=== PATIENT | male | born 1955 | race Caucasian/White ===

== ENCOUNTER 2020-06-24 17:33 | Inpatient (IN) | payer OTHER ==
[~2020-06-24] VITALS: Ht 182.9 cm; Wt 89.2 kg
[~2020-06-24 17:33] MED LIST: PERCOT PO
[2020-06-24] MEDS ORDERED: cefTRIAXone 1GM/50ML D5W 50 ML IV ONE (17:45)
[2020-06-24] MEDS ORDERED: FUROSEMIDE 20 MG/2 ML VIAL IV ONE (17:45)
[2020-06-24] MEDS ORDERED: NITROGLYCERIN 0.4 MG SL TAB SL PRN ×2 (18:45→22:45)
[2020-06-24] MEDS ORDERED: MORPHINE SULF INJ 2 MG/ML SYRINGE 1ML IV PRN ×3 (18:45→22:45)
[2020-06-24 18:59] LABS: Basophils # (auto) 0 10 ^3/uL (0-0.2); Eosinophils # (auto) 0.1 10 ^3/uL (0-0.8); Eosinophils % (auto) 1.7 % (0.0-7.0); Hemoglobin 11.5 g/dL (13.5-17.5); Lymphocytes # (auto) 0.8 10 ^3/uL (0.4-5.4); Monocytes # (auto) 0.7 10 ^3/uL (0-1.3); Neutrophils # (auto) 5.7 10 ^3/uL (1.6-8.6)
[2020-06-24 19:01] LABS: Basophils % (auto) 0.2 % (0.0-2.0); Hematocrit 33.5 % (41.0-53.0); Lymphocytes % (auto) 10.9 % (10.0-50.0); Mean Corpuscular Hemoglobin 36.2 pg (28.0-32.0); Mean Corpuscular Hgb Conc. 34.3 g/dL (32.0-36.0); Mean Corpuscular Volume 105.6 fL (80.0-100.0); Monocytes % (auto) 9.3 % (0.0-12.0); Neutrophils % (auto) 77.9 % (37.0-80.0); Nucleated Red Blood Cells % 0.2 %; Platelet Count (auto) 86 10^3/uL (140-450); Red Blood Cells 3.17 10^6/uL (4.5-5.90); Red Cell Distribution Width 16.2 % (11.8-14.3); White Blood Cell 7.4 10^3/uL (4.4-10.8)
[2020-06-24 19:04] LABS: Albumin 2.5 g/dL (3.4-5.0); Anion Gap 9 (5-15); Blood Urea Nitrogen 19 mg/dL (7-18); Calcium 8.3 mg/dL (8.5-10.1); Carbon Dioxide 22 mmol/L (21-32); Chloride 104 mmol/L (98-107); Glucose 99 mg/dL (74-106); Potassium 3.3 mmol/L (3.5-5.1); Sodium 135 mmol/L (136-145)
[2020-06-24 19:06] LABS: Alanine Aminotransferase 44 U/L (16-61); Aspartate Aminotransferase 88 U/L (15-37); GFR African American 102 mL/min; GFR Non-African American 84 mL/min
[2020-06-24 19:09] LABS: Lactic Acid w/Reflex 2.1 mmol/L (0.4-2.0)
[2020-06-24 19:11] LABS: Alkaline Phosphatase 173 U/L (45-117); Bilirubin, Total 7.7 mg/dL (0.2-1.0); Total Protein 6.9 g/dL (6.4-8.2)
[2020-06-24 19:28] LABS: INR 1.41 (0.9-1.15); Partial Thromboplastin Time 33.1 sec (23.0-31.2)
[2020-06-24 20:54] VITALS: BP 119/72
[2020-06-24] MEDS ORDERED: MULT-1018 PO (21:52)
[2020-06-24 22:00] VITALS: BP 119/72
[2020-06-24] MEDS ORDERED: POTASSIUM CHL 20MEQ/100ML 100 ML IV ONE (22:45)
[2020-06-24] MEDS ORDERED: SODIUM CHLORIDE 0.9% 1,000 ML IV SCH (22:45)
[2020-06-24] MEDS ORDERED: THIAMINE HCL 100 MG TAB PO ONE (22:45)
[2020-06-24] MEDS ORDERED: DOCUSATE SOD 100 MG CAP PO PRN (22:45)
[2020-06-24] MEDS ORDERED: ACETAMINOPHEN 500 MG TAB PO PRN (22:45)
[2020-06-24] MEDS ORDERED: FOLIC ACID 1 MG TAB PO ONE (22:45)
[2020-06-24] MEDS ORDERED: LORazepam 0.5 MG TAB PO PRN (22:45)
[2020-06-24] MEDS ORDERED: ONDANSETRON HCL 4 MG/2 ML VIAL IV PRN (22:45)
[2020-06-24] MEDS ORDERED: MULTIPLE VITAMINS W/ MINERALS TAB PO ONE (22:45)
[2020-06-24] MEDS ORDERED: ALUM & MAG HYDROX-SIMETH LIQ(MAALOX) 30 ML PO PRN (22:45)
[2020-06-24] MEDS ORDERED: LORazepam 2MG/ML-1ML VIAL IV PRN (23:00)
[2020-06-24] MEDS ORDERED: VITAMINS A & D (TOPICAL) OINT 5GM TOP ONE (23:00)
[2020-06-24] MEDS ORDERED: VITAMINS A & D (TOPICAL) OINT 5GM TOP PRN (23:00)
[2020-06-24] MEDS ORDERED: ARTISOL13 EACHEYE (23:35)
[2020-06-24 23:38] LABS: Magnesium 1.6 mg/dL (1.6-2.6)
[2020-06-24 23:47] LABS: CRP High Sensitivity 2.16 mg/dL (< 0.3)
[2020-06-25] VITALS (7 sets, daily range): BP systolic 96–119; BP diastolic 56–72
[2020-06-25] MEDS ORDERED: IPRATROPIUM BROM 0.5 MG/2.5ML INH SOL NEB PRN (03:45)
[2020-06-25] MEDS ORDERED: ALBUTEROL SULF 2.5 MG/0.5ML(0.5%) NEB SOLN NEB PRN (03:45)
[2020-06-25] MEDS ORDERED: ALBUTEROL SULF HFA 90MCG INH 200DOSE IN SCH (06:00)
[2020-06-25] MEDS: FUROSEMIDE 20 MG/2 ML VIAL IV SCH ×2 (07:04→17:47)
[2020-06-25 07:48] LABS: Basophils # (auto) 0 10 ^3/uL (0-0.2); Eosinophils # (auto) 0.1 10 ^3/uL (0-0.8); Hemoglobin 10.6 g/dL (13.5-17.5); Monocytes # (auto) 0.3 10 ^3/uL (0-1.3); White Blood Cell 3.3 10^3/uL (4.4-10.8)
[2020-06-25 07:51] LABS: Basophils % (auto) 0.8 % (0.0-2.0); Eosinophils % (auto) 3.4 % (0.0-7.0); Hematocrit 31.3 % (41.0-53.0); Lymphocytes # (auto) 0.4 10 ^3/uL (0.4-5.4); Lymphocytes % (auto) 12.9 % (10.0-50.0); Mean Corpuscular Hemoglobin 36.1 pg (28.0-32.0); Mean Corpuscular Hgb Conc. 33.9 g/dL (32.0-36.0); Mean Corpuscular Volume 106.4 fL (80.0-100.0); Monocytes % (auto) 8.6 % (0.0-12.0); Neutrophils # (auto) 2.4 10 ^3/uL (1.6-8.6); Neutrophils % (auto) 74.3 % (37.0-80.0); Nucleated Red Blood Cells % 0.2 %; Platelet Count (auto) 50 10^3/uL (140-450); Red Blood Cells 2.94 10^6/uL (4.5-5.90); Red Cell Distribution Width 16.4 % (11.8-14.3)
[2020-06-25 08:02] LABS: INR 1.41 (0.9-1.15); Partial Thromboplastin Time 37.1 sec (23.0-31.2)
[2020-06-25 08:13] LABS: Chloride 106 mmol/L (98-107); Potassium 3.1 mmol/L (3.5-5.1); Sodium 137 mmol/L (136-145)
[2020-06-25 08:20] LABS: Alanine Aminotransferase 37 U/L (16-61); Albumin 2.1 g/dL (3.4-5.0); Alkaline Phosphatase 154 U/L (45-117); Anion Gap 8 (5-15); Aspartate Aminotransferase 73 U/L (15-37); BUN/Creatinine Ratio 20.8; Bilirubin, Total 4.8 mg/dL (0.2-1.0); Blood Urea Nitrogen 16 mg/dL (7-18); Calcium 8.1 mg/dL (8.5-10.1); Carbon Dioxide 23 mmol/L (21-32); Cholesterol 112 mg/dL (< 200); GFR African American 130 mL/min; GFR Non-African American 107 mL/min; Glucose 179 mg/dL (74-106); HDL Cholesterol 57 mg/dL (40-59); LDL Cholesterol 53 mg/dL (< 100); Magnesium 1.8 mg/dL (1.6-2.6); Phosphorus 3.1 mg/dL (2.5-4.90); Total Protein 5.7 g/dL (6.4-8.2); Triglycerides 83 mg/dL (< 150)
[2020-06-25] MEDS: METOPROLOL TARTRATE 25 MG TAB PO SCH ×2 (10:00→22:38)
[2020-06-25] MEDS ORDERED: DexAMETHasone SOD PHOS 10MG/1ML VIAL INJ IV SCH (10:00)
[2020-06-25] MEDS ORDERED: ZINC SULFATE 220mg CAP or TAB PO SCH (10:00)
[2020-06-25] MEDS ORDERED: CHOLECALCIFEROL (VITD3) 2,000 UNIT CAP PO SCH (10:00)
[2020-06-25] MEDS ORDERED: ASCORBIC ACID 1,000 MG TAB PO SCH (10:00)
[2020-06-25] MEDS ORDERED: BUDESONIDE (INHALATION) 180 MCG IH IN SCH (10:00)
[2020-06-25] MEDS ORDERED: DOXYCYCLINE 100MG/250ML 250 ML IV SCH (10:00)
[2020-06-25] MEDS: FAMOTIDINE (10MG/ML) 2ML VL IV SCH ×2 (10:30→22:39)
[2020-06-25] MEDS: ASPirin 81 mg TAB PO SCH (10:30)
[2020-06-25] MEDS: FOLIC ACID 1 MG TAB PO SCH (10:30)
[2020-06-25] MEDS: THIAMINE HCL 100 MG TAB PO SCH (10:30)
[2020-06-25] MEDS: POTASSIUM CHL 20 Meq TABLET PO SCH (10:31)
[2020-06-25] MEDS: ENOXAPARIN SOD 40 MG/0.4 ML SYRINGE SC SCH (10:31)
[2020-06-25] MEDS: MULTIPLE VITAMINS W/ MINERALS TAB PO SCH (10:31)
[2020-06-25] MEDS: MAGNESIUM SULFATE 1GM/100ML 100 ML IV ONE ×2 (14:15→14:45)
[2020-06-25 15:04] LABS: Folate (Folic Acid) 15.23 ng/mL (5.38-24)
[2020-06-25 15:17] LABS: % Iron Saturation 37.2 % (20-55)
[2020-06-25 17:35] LABS: Urine Bacteria FEW /hpf (None Seen); Urine Blood Negative /uL (Negative); Urine Mucus FEW (None Seen); Urine WBC 2 /hpf (0 - 3)
[2020-06-25 17:44] LABS: Alcohol, Urine < 3.0 mg/dL (0-10); Amphetamine Screen, Urine POSITIVE (NEGATIVE); Barbiturate Scree,Urine NEGATIVE (NEGATIVE); Benzodiazephine Screen, Urine NEGATIVE (NEGATIVE); Cannabinoid Screen, Urine NEGATIVE (NEGATIVE); Cocaine Screen, Urine NEGATIVE (NEGATIVE); Phencyclidine Screen, Urine NEGATIVE (NEGATIVE)
[2020-06-25 17:51] LABS: Opiate Scree,Urine NEGATIVE (NEGATIVE)
[2020-06-25] MEDS ORDERED: ATORVASTATIN 20 MG TAB PO SCH (22:00)
[2020-06-26 05:00] VITALS: BP 103/61
[2020-06-26] MEDS: FUROSEMIDE 20 MG/2 ML VIAL IV SCH ×2 (05:36→17:51)
[2020-06-26 07:15] LABS: INR 1.41 (0.9-1.15)
[2020-06-26 07:20] LABS: Basophils # (auto) 0 10 ^3/uL (0-0.2); Basophils % (auto) 0.5 % (0.0-2.0); Eosinophils # (auto) 0.1 10 ^3/uL (0-0.8); Eosinophils % (auto) 4.4 % (0.0-7.0); Hematocrit 34.8 % (41.0-53.0); Hemoglobin 11.6 g/dL (13.5-17.5); Lymphocytes # (auto) 0.6 10 ^3/uL (0.4-5.4); Lymphocytes % (auto) 24.3 % (10.0-50.0); Mean Corpuscular Hemoglobin 35.9 pg (28.0-32.0); Mean Corpuscular Hgb Conc. 33.4 g/dL (32.0-36.0); Mean Corpuscular Volume 107.4 fL (80.0-100.0); Monocytes # (auto) 0.3 10 ^3/uL (0-1.3); Monocytes % (auto) 10.7 % (0.0-12.0); Neutrophils # (auto) 1.6 10 ^3/uL (1.6-8.6); Neutrophils % (auto) 60.1 % (37.0-80.0); Nucleated Red Blood Cells % 0.1 %; Platelet Count (auto) 57 10^3/uL (140-450); Red Blood Cells 3.24 10^6/uL (4.5-5.90); Red Cell Distribution Width 16.9 % (11.8-14.3); White Blood Cell 2.6 10^3/uL (4.4-10.8)
[2020-06-26 07:24] LABS: Calcium 8.1 mg/dL (8.5-10.1); Potassium 3.5 mmol/L (3.5-5.1)
[2020-06-26 07:28] LABS: Albumin 2.2 g/dL (3.4-5.0); BUN/Creatinine Ratio 17.7; Magnesium 1.6 mg/dL (1.6-2.6)
[2020-06-26 07:30] LABS: Bilirubin, Total 3.8 mg/dL (0.2-1.0); Total Protein 6.3 g/dL (6.4-8.2)
[2020-06-26] MEDS ORDERED: ADENOSINE 76 MG in GIVE UN-DILUTED 0 ML IV STA (08:33)
[2020-06-26 09:00] VITALS: BP 106/71
[2020-06-26] MEDS: FOLIC ACID 1 MG TAB PO SCH (10:27)
[2020-06-26] MEDS: THIAMINE HCL 100 MG TAB PO SCH (10:27)
[2020-06-26] MEDS: ASPirin 81 mg TAB PO SCH (10:27)
[2020-06-26] MEDS: POTASSIUM CHL 20 Meq TABLET PO SCH (10:27)
[2020-06-26] MEDS: FAMOTIDINE (10MG/ML) 2ML VL IV SCH ×2 (10:27→21:54)
[2020-06-26] MEDS: MULTIPLE VITAMINS W/ MINERALS TAB PO SCH (10:28)
[2020-06-26] MEDS: ENOXAPARIN SOD 40 MG/0.4 ML SYRINGE SC SCH (10:28)
[2020-06-26 13:00] VITALS: BP 98/51
[2020-06-26] MEDS: METOPROLOL TARTRATE 25 MG TAB PO SCH ×2 (13:01→21:55)
[2020-06-26] MEDS ORDERED: POTASSIUM CHL 20 Meq TABLET PO ONE (16:15)
[2020-06-26] MEDS ORDERED: MAGNESIUM SULFATE 1GM/100ML 100 ML IV ONE (16:15)
[2020-06-26 16:42] VITALS: BP 112/71
[2020-06-26] MEDS: HYDROcodone-ACET 5/325MG TAB PO PRN (21:54)
[2020-06-26 22:00] VITALS: BP 108/57
[2020-06-27 05:28] VITALS: BP 126/65
[2020-06-27] MEDS: FUROSEMIDE 20 MG/2 ML VIAL IV SCH (06:04)
[2020-06-27] MEDS: HYDROcodone-ACET 5/325MG TAB PO PRN (06:16)
[2020-06-27 06:24] LABS: Basophils # (auto) 0 10 ^3/uL (0-0.2); Basophils % (auto) 0.7 % (0.0-2.0); Eosinophils # (auto) 0.1 10 ^3/uL (0-0.8); Eosinophils % (auto) 4.8 % (0.0-7.0); Hematocrit 34.6 % (41.0-53.0); Hemoglobin 11.9 g/dL (13.5-17.5); Lymphocytes # (auto) 0.7 10 ^3/uL (0.4-5.4); Lymphocytes % (auto) 23.8 % (10.0-50.0); Mean Corpuscular Hemoglobin 36.9 pg (28.0-32.0); Mean Corpuscular Hgb Conc. 34.4 g/dL (32.0-36.0); Mean Corpuscular Volume 107.4 fL (80.0-100.0); Monocytes # (auto) 0.3 10 ^3/uL (0-1.3); Monocytes % (auto) 11.5 % (0.0-12.0); Neutrophils # (auto) 1.8 10 ^3/uL (1.6-8.6); Neutrophils % (auto) 59.2 % (37.0-80.0); Nucleated Red Blood Cells % 0.2 %; Platelet Count (auto) 60 10^3/uL (140-450); Red Blood Cells 3.22 10^6/uL (4.5-5.90); Red Cell Distribution Width 16.8 % (11.8-14.3)
[2020-06-27 06:46] LABS: Albumin 2.2 g/dL (3.4-5.0); Calcium 8.5 mg/dL (8.5-10.1); Magnesium 1.9 mg/dL (1.6-2.6)
[2020-06-27 06:51] LABS: BUN/Creatinine Ratio 17.5; Bilirubin, Total 2.9 mg/dL (0.2-1.0); Phosphorus 3.5 mg/dL (2.5-4.90); Total Protein 6.3 g/dL (6.4-8.2)
[2020-06-27 09:00] VITALS: BP 115/61
[2020-06-27 09:10] LABS: Hepatitis B Surface Antibody Negative
[2020-06-27 09:36] LABS: Hepatitis A Total Antibody Negative
[2020-06-27] MEDS: ENOXAPARIN SOD 40 MG/0.4 ML SYRINGE SC SCH (10:00)
[2020-06-27 10:13] LABS: Hepatitis B Core Total AB Negative; Hepatitis B Surface Antigen Negative (Negative)
[2020-06-27] MEDS: POTASSIUM CHL 20 Meq TABLET PO SCH (10:13)
[2020-06-27] MEDS: ASPirin 81 mg TAB PO SCH (10:13)
[2020-06-27] MEDS: FOLIC ACID 1 MG TAB PO SCH (10:14)
[2020-06-27] MEDS: METOPROLOL TARTRATE 25 MG TAB PO SCH (10:14)
[2020-06-27] MEDS: MULTIPLE VITAMINS W/ MINERALS TAB PO SCH (10:14)
[2020-06-27] MEDS: FAMOTIDINE (10MG/ML) 2ML VL IV SCH (10:15)
[2020-06-27 10:20] LABS: Hepatitis C Antibody Positive (Negative)
[2020-06-27] MEDS: THIAMINE HCL 100 MG TAB PO SCH (10:20)
[2020-06-27 13:00] VITALS: BP 118/83
[2020-06-27] MEDS ORDERED: SACC250C PO (15:50)
[2020-06-27] MEDS ORDERED: MET25T PO (15:50)
[2020-06-27] MEDS ORDERED: DOXY-286 PO (15:50)
[2020-06-27] MEDS ORDERED: MULT-351 PO (15:50)
[2020-06-27] MEDS ORDERED: THIA100T5 PO (15:50)
[2020-06-27] MEDS ORDERED: FAMO20TA10 PO (15:50)
[2020-06-27] MEDS ORDERED: ASPI-378 PO (15:50)
[2020-06-27 16:57] VITALS: BP 107/63
== END 2020-06-27 17:01 | disposition left against medical advice (07) | DRG 917 ==
LOC: ER 17:33 → EDBD 17:33 → TELE-EAST 17:34 → TELE-CENTR 06-25 19:35
PROVIDERS: ADMIT Hospitalist; ATTEND Internal Medicine
DX: T43.621A Poisoning by amphetamines, accidental (unintentional), initial encounter (principal); I50.33 Acute on chronic diastolic (congestive) heart failure; N17.0 Acute kidney failure with tubular necrosis; J44.1 Chronic obstructive pulmonary disease with (acute) exacerbation; F10.239 Alcohol dependence with withdrawal, unspecified; E87.1 Hypo-osmolality and hyponatremia; D68.4 Acquired coagulation factor deficiency; D61.818 Other pancytopenia; K76.6 Portal hypertension; D68.69 Other thrombophilia; I48.91 Unspecified atrial fibrillation; E87.6 Hypokalemia; D53.9 Nutritional anemia, unspecified; K70.10 Alcoholic hepatitis without ascites; F12.90 Cannabis use, unspecified, uncomplicated; F15.10 Other stimulant abuse, uncomplicated; F17.210 Nicotine dependence, cigarettes, uncomplicated; I25.10 Atherosclerotic heart disease of native coronary artery without angina pectoris; R16.1 Splenomegaly, not elsewhere classified; Z53.29 Procedure and treatment not carried out because of patient's decision for other reasons; K29.20 Alcoholic gastritis without bleeding; K70.30 Alcoholic cirrhosis of liver without ascites; Z20.828 Contact with and (suspected) exposure to other viral communicable diseases; Z91.81 History of falling; Z71.6 Tobacco abuse counseling; Z71.41 Alcohol abuse counseling and surveillance of alcoholic
CPT/HCPCS: 36415; 70450; 71045; 71250; 78452; 80053; 80061; 80307; 81001; 82607; 82728; 82746; 83036; 83540; 83550; 83605; 83615; 83735; 83880; 84100; 84443; 84484; 85025; 85379; 85610; 85730; 86141; 86704; 86706; 86708; 86803; 87040; 87086; 87340; 87426; 93005; 93017; 93306; 93926; 93970; 93971; 96365; 97163; G0378; J0153; J0696; J3480; J3490

== ENCOUNTER 2021-03-07 12:23 | Inpatient (IN) | payer OTHER, MEDICARE ==
[~2021-03-07] VITALS: Ht 180.3 cm; Wt 77.1 kg
[~2021-03-07 12:23] MED LIST changes: +ARTISOL13 EACHEYE; +ASPI-378 PO; +DOXY-286 PO; +FAMO20TA10 PO; +MET25T PO; +MULT-1018 PO; +MULT-351 PO; -PERCOT PO; +SACC250C PO; +THIA100T5 PO
[2021-03-07 14:11] LABS: Basophils # (auto) 0 10 ^3/uL (0-0.2); Monocytes # (auto) 0.5 10 ^3/uL (0-1.3); Red Blood Cells 3.43 10^6/uL (4.5-5.90); White Blood Cell 3.7 10^3/uL (4.4-10.8)
[2021-03-07 14:13] LABS: Basophils % (auto) 0.4 % (0.0-2.0); Eosinophils # (auto) 0.1 10 ^3/uL (0-0.8); Eosinophils % (auto) 3.9 % (0.0-7.0); Hematocrit 35.5 % (41.0-53.0); Hemoglobin 12.6 g/dL (13.5-17.5); Lymphocytes # (auto) 0.8 10 ^3/uL (0.4-5.4); Lymphocytes % (auto) 23.1 % (10.0-50.0); Mean Corpuscular Hemoglobin 36.5 pg (28.0-32.0); Mean Corpuscular Hgb Conc. 35.4 g/dL (32.0-36.0); Mean Corpuscular Volume 103.3 fL (80.0-100.0); Monocytes % (auto) 14.6 % (0.0-12.0); Neutrophils # (auto) 2.1 10 ^3/uL (1.6-8.6); Nucleated Red Blood Cells % 0.2 %; Red Cell Distribution Width 14.9 % (11.8-14.3)
[2021-03-07 14:33] LABS: Chloride 114 mmol/L (98-107); Potassium 4.2 mmol/L (3.5-5.1); Sodium 141 mmol/L (136-145)
[2021-03-07 14:43] LABS: Alanine Aminotransferase 64 U/L (16-61); Albumin 2.2 g/dL (3.4-5.0); Alkaline Phosphatase 184 U/L (45-117); Anion Gap 3 (5-15); Aspartate Aminotransferase 91 U/L (15-37); BUN/Creatinine Ratio 17.7; Bilirubin, Total 3.1 mg/dL (0.2-1.0); Blood Urea Nitrogen 11 mg/dL (7-18); Calcium 8.7 mg/dL (8.5-10.1); Carbon Dioxide 24 mmol/L (21-32); GFR African American 166 mL/min; GFR Non-African American 138 mL/min; Glucose 100 mg/dL (74-106); Magnesium 1.9 mg/dL (1.6-2.6); Total Protein 5.8 g/dL (6.4-8.2)
[2021-03-07] MEDS ORDERED: MORPHINE SULF INJ 2 MG/ML SYRINGE 1ML IV PRN ×3 (15:00→23:45)
[2021-03-07] MEDS ORDERED: NITROGLYCERIN 0.4 MG SL TAB SL PRN ×2 (15:00→23:45)
[2021-03-07] MEDS ORDERED: LACTATED RINGER'S 1,000 ML IV ONE (15:00)
[2021-03-07] MEDS ORDERED: METOPROLOL TARTRATE 1MG/1ML-5ML VIAL IV PRN (19:00)
[2021-03-07 20:00] VITALS: BP 137/92
[2021-03-07 22:00] VITALS: BP 137/92
[2021-03-07 22:43] LABS: Urine WBC None Seen /hpf (0 - 3)
[2021-03-07 22:57] LABS: Urine Bacteria NONE SEEN /hpf (None Seen); Urine Blood Negative /uL (Negative)
[2021-03-07] MEDS ORDERED: ONDANSETRON HCL 4 MG/2 ML VIAL IV PRN (23:45)
[2021-03-07] MEDS ORDERED: HYDROcodone-ACET 5/325MG TAB PO PRN (23:45)
[2021-03-07] MEDS ORDERED: DOCUSATE SOD 100 MG CAP PO PRN (23:45)
[2021-03-07] MEDS ORDERED: LORazepam 2MG/ML-1ML VIAL IV PRN (23:45)
[2021-03-07] MEDS ORDERED: cefTRIAXone 1GM/50ML D5W 50 ML IV ONE (23:45)
[2021-03-07] MEDS ORDERED: ALUM & MAG HYDROX-SIMETH LIQ(MAALOX) 30 ML PO PRN (23:45)
[2021-03-08] MEDS: LACTULOSE 20Gm/30ML SOLN PO SCH ×13 (00:13→17:33)
[2021-03-08] MEDS ORDERED: HYDROIN8 EX (01:37)
[2021-03-08] MEDS ORDERED: LISI40TA11 PO (01:37)
[2021-03-08 05:00] VITALS: BP 97/50
[2021-03-08] MEDS: SODIUM CHLOR 0.9% PF (SALINE LOCK) 10ML VIAL/SYR IV SCH ×3 (06:09→22:16)
[2021-03-08 07:34] LABS: Cholesterol 151 mg/dL (< 200); HDL Cholesterol 66 mg/dL (40-59); LDL Cholesterol 81 mg/dL (< 100); Triglycerides 58 mg/dL (< 150)
[2021-03-08 09:00] VITALS: BP 98/63
[2021-03-08] MEDS: cefTRIAXone 1GM/50ML D5W 50 ML IV SCH (09:36)
[2021-03-08] MEDS: FAMOTIDINE 20 MG TAB PO SCH ×2 (09:37→22:16)
[2021-03-08] MEDS: THIAMINE HCL 100 MG TAB PO SCH (09:37)
[2021-03-08] MEDS: FLORASTOR (S. BOULARDII) 250 MG CAP PO SCH (09:38)
[2021-03-08] MEDS: ASPirin-EC 81 mg tab PO SCH (09:38)
[2021-03-08] MEDS: METOPROLOL TARTRATE 25 MG TAB PO SCH ×2 (09:40→22:16)
[2021-03-08] MEDS: SODIUM CHLORIDE 0.9% 1,000 ML IV SCH ×2 (12:48→19:10)
[2021-03-08 12:49] VITALS: BP 119/64
[2021-03-08 17:00] VITALS: BP 106/54
[2021-03-08 22:00] VITALS: BP 109/62
[2021-03-08 22:04] LABS: Urine WBC None Seen /hpf (0 - 3)
[2021-03-08 22:10] LABS: Urine Bacteria NONE SEEN /hpf (None Seen); Urine Blood Negative /uL (Negative); Urine Specific Gravity 1.011 (1.001-1.035)
[2021-03-08 22:49] LABS: Alcohol, Urine < 3.0 mg/dL (0-10); Amphetamine Screen, Urine POSITIVE (NEGATIVE); Barbiturate Scree,Urine NEGATIVE (NEGATIVE); Benzodiazephine Screen, Urine NEGATIVE (NEGATIVE); Cannabinoid Screen, Urine NEGATIVE (NEGATIVE); Cocaine Screen, Urine NEGATIVE (NEGATIVE); Opiate Scree,Urine NEGATIVE (NEGATIVE); Phencyclidine Screen, Urine NEGATIVE (NEGATIVE)
[2021-03-09] MEDS: SODIUM CHLORIDE 0.9% 1,000 ML IV SCH (02:00)
[2021-03-09 05:32] VITALS: BP 113/65
[2021-03-09] MEDS: SODIUM CHLOR 0.9% PF (SALINE LOCK) 10ML VIAL/SYR IV SCH (06:38)
[2021-03-09] MEDS: LACTULOSE 20Gm/30ML SOLN PO SCH ×3 (06:38→12:00)
[2021-03-09] MEDS: ASPirin-EC 81 mg tab PO SCH (08:56)
[2021-03-09] MEDS: METOPROLOL TARTRATE 25 MG TAB PO SCH (08:56)
[2021-03-09] MEDS: FLORASTOR (S. BOULARDII) 250 MG CAP PO SCH (08:56)
[2021-03-09] MEDS: THIAMINE HCL 100 MG TAB PO SCH (08:57)
[2021-03-09] MEDS: cefTRIAXone 1GM/50ML D5W 50 ML IV SCH (08:57)
[2021-03-09] MEDS: FAMOTIDINE 20 MG TAB PO SCH (08:57)
[2021-03-09 09:00] VITALS: BP 112/66
[2021-03-09 12:06] VITALS: BP 102/83
== END 2021-03-09 14:30 | disposition home or self-care (01) | DRG 432 ==
LOC: ER 12:23 → EDBD 12:23 → TELE 14:51 → TELE-WESTW 19:55
PROVIDERS: ADMIT Hospitalist; ATTEND Hospitalist
DX: K70.30 Alcoholic cirrhosis of liver without ascites (principal); G92 Toxic encephalopathy; D61.818 Other pancytopenia; D68.4 Acquired coagulation factor deficiency; F10.239 Alcohol dependence with withdrawal, unspecified; I48.20 Chronic atrial fibrillation, unspecified; B18.2 Chronic viral hepatitis C; I50.9 Heart failure, unspecified; K29.70 Gastritis, unspecified, without bleeding; K70.40 Alcoholic hepatic failure without coma; I95.9 Hypotension, unspecified; D53.9 Nutritional anemia, unspecified; D75.89 Other specified diseases of blood and blood-forming organs; Z20.822 Contact with and (suspected) exposure to COVID-19; F10.229 Alcohol dependence with intoxication, unspecified; F15.10 Other stimulant abuse, uncomplicated; F17.210 Nicotine dependence, cigarettes, uncomplicated; I25.10 Atherosclerotic heart disease of native coronary artery without angina pectoris; J44.9 Chronic obstructive pulmonary disease, unspecified; Z79.82 Long term (current) use of aspirin; Z86.16 Personal history of COVID-19; Z87.01 Personal history of pneumonia (recurrent); Z91.19 Patient's noncompliance with other medical treatment and regimen
CPT/HCPCS: 36415; 70450; 71045; 80053; 80061; 80307; 80320; 81001; 82140; 83036; 83735; 84484; 85025; 85049; 87040; 87086; 87426; 93005; 96360; 96361; G0378; J0696